=== PATIENT | female | born 1970 | race Caucasian/White ===

== ENCOUNTER 2020-01-19 01:42 | Day surgery (SDC) | payer BC, SELFPAY ==
[2020-01-16 09:54] VITALS: BMI 24.2
[2020-01-19 12:17] VITALS: BP 140/93; PULSE 113; RESP 20; TEMP 36.4; O2SAT 100
[2020-01-19] MEDS: LACTATED RINGERS 1,000 ML 150 ML IV CONT (12:31)
--- NOTE | 2020-01-19 12:56 | WPDANESEPPF ---
Anes - Initial Pre Proc Eval Procedure: Operation Date: 01/19/20 13:30 Proposed Procedures p Screening Colonoscopy - Guillermo Sahni MD Date/Time: 01/19/20 12:56 Surgeon: Guillermo Sahni MD Pre Op Diagnosis: Neoplasm Screening Patient Data Age: 49 Gender: F Height: 1.68 m Weight: 69.3 kg Last Vital Signs Temp 36.4 C 01/19/20 12:17 Pulse 113 H 01/19/20 12:17 Resp 20 01/19/20 12:17 BP 140/93 H 01/19/20 12:17 Pulse Ox 100 01/19/20 12:17 Allergies Allergy/AdvReac Type Severity Reaction Status Date / Time No Known Allergies Allergy Verified 01/19/20 12:15 Home Medications Medication Instructions Recorded Confirmed Type aspirin [Aspir-81] 81 mg PO DAILY 01/16/20 01/16/20 History epkkrdumtj-qyflswozfmcpa-xsew 1 tablet PO PRN PRN 01/16/20 01/16/20 History cholecalciferol (vitamin D3) 1,000 unit PO DAILY 01/16/20 01/16/20 History [Vitamin D3] dicyclomine 10 mg PO BID PRN 01/16/20 01/16/20 History nortriptyline 20 mg PO HS 01/16/20 01/16/20 History rosuvastatin 20 mg PO DAILY 01/16/20 01/16/20 History vitamin B complex 1 cap PO DAILY 01/16/20 01/16/20 History Patient hx anesthesia problems: none Family hx anesthesia problems: none [facility] Past Medical History Medical History (Updated 01/18/20 @ 13:29 by Dilshad Stephens DO) CVA (cerebral vascular accident) 2005 no residual Hyperlipidemia Migraine Palpitations Anes - Eval Final PreProcedure Day of Procedure 01/19/20 12:56 Patient weight: normal Heart: regular rate and rhythm Lungs: clear to auscultation and normal air movement Airway: Mallampati scale class II Neurological: alert and oriented Last oral intake: >/= 8 hours ASA classification: III Emergent: no Anesthetic plan: proceed Anesthesia type and monitoring: general GIVS and standard monitoring Informed Consent: The patient's anesthetic plan and its attendant risks and benefits were discussed with the patient/family/POA. Questions were solicited and answers provided to the satisfaction of the patient/family/POA.
[2020-01-19 13:33] VITALS: BP 118/78; PULSE 100; RESP 16; O2SAT 99
--- NOTE | 2020-01-19 13:34 | PM.HPGS ---
History of Present Illness History of Present Illness Consent: Risks, benefits, and alternatives have been discussed and questions answered. Patient agrees to proceed with procedure. Chief complaint: Neoplasm Screening Narrative: Yunior Yañez is a 49 year old female here for screening colonoscopy, never had one. Review of Systems Constitutional: Constitutional: Denies headache(s) and Denies weakness Eyes: Eyes: Denies blurry vision ENT: Reports Normal hearing present, Denies headache(s) and Denies neck pain Cardiovascular: Cardiovascular: Denies chest pain and Denies dyspnea Respiratory: Respiratory: Denies dyspnea Gastrointestinal: Gastrointestinal: Reports no additional gastrointestinal complaints Genitourinary: Genitourinary: Denies dysuria Musculoskeletal: Musculoskeletal: Denies neck pain Integumentary/Breasts: Skin/Breast: Denies dry skin Neurologic: Reports Normal hearing present, Denies headache(s) and Denies weakness Psychiatric: Psychiatric: Denies anxiety Endocrine: Endocrine: Denies change in body appearance Hematologic/Lymphatic: Hematologic/Lymphatic: Denies easy bleeding Allergic/Immunologic: Allergic/Immunologic: Denies urticaria PMFSH Past Medical History Medical History (Updated 01/19/20 @ 13:35 by Guillermo Sahni MD) Colon cancer screening CVA (cerebral vascular accident) 2005 no residual Hyperlipidemia Migraine Palpitations Meds Home Medications and Allergies Home Medications Medication Instructions Recorded Confirmed Type aspirin [Aspir-81] 81 mg PO DAILY 01/16/20 01/16/20 History wzugrjuoue-hsrtntsggbwsq-tmwk 1 tablet PO PRN PRN 01/16/20 01/16/20 History cholecalciferol (vitamin D3) 1,000 unit PO DAILY 01/16/20 01/16/20 History [Vitamin D3] dicyclomine 10 mg PO BID PRN 01/16/20 01/16/20 History nortriptyline 20 mg PO HS 01/16/20 01/16/20 History rosuvastatin 20 mg PO DAILY 01/16/20 01/16/20 History vitamin B complex 1 cap PO DAILY 01/16/20 01/16/20 History Allergies Allergy/AdvReac Type Severity Reaction Status Date / Time No Known Allergies Allergy Verified 01/19/20 12:15 Vital Signs Vital Signs - 24 hr 01/19/20 12:17 Temperature 97.6 F Pulse Rate 113 H Respiratory Rate 20 Blood Pressure 140/93 H Pulse Oximetry 100 Exam Const: General: comfortable and no acute distress HENMT: General nose exam: Normal nares present Eyes: General: appearance normal, both eyes and all related structures Neck: Neck: no JVD Resp: Auscultation: clear to auscultation bilaterally Cardio: Rate: regular rate Rhythm: regular rhythm GI: Inspection: non-distended GI Palp: Yes Soft to palpation Skin: General skin exam: normal color Neuro: General: gait normal Speech: normal speech Extrem: General: normal to inspection Psych: Mental Status: mental status grossly normal Assessment and Plan Assessment and plan (1) Colon cancer screening: Code(s): Z12.11 - Encounter for screening for malignant neoplasm of colon Status: Acute Assessment and Plan: will proceed with colonoscopy
[2020-01-19 13:43] VITALS: BP 127/86; PULSE 95; RESP 16; O2SAT 100
[2020-01-19 13:53] VITALS: BP 124/74; PULSE 94; RESP 21; O2SAT 98
== END 2020-01-19 14:15 | disposition home or self-care (01) ==
PROVIDERS: PCP Internal Medicine; Visit Provider Internal Medicine Gastroenterology
PROC: 0DJD8ZZ Inspection of Lower Intestinal Tract, Via Natural or Artificial Opening Endoscopic (ICD-10-PCS; CPT 45378; principal; 2020-01-19 13:30)
DX: Z12.11 Encounter for screening for malignant neoplasm of colon (principal); K57.30 Diverticulosis of large intestine without perforation or abscess without bleeding; K64.8 Other hemorrhoids; E78.5 Hyperlipidemia, unspecified; Z86.73 Personal history of transient ischemic attack (TIA), and cerebral infarction without residual deficits; Z79.82 Long term (current) use of aspirin
CPT/HCPCS: 45378; J2704; J7120

== ENCOUNTER 2020-08-24 15:20 | Outpatient (CLI) | payer BC, SELFPAY ==
--- NOTE | ~2020-08-24 | MM_ITS ---
EXAMINATION: MM screening shyann BI w sam HISTORY: Screening TECHNIQUE: Craniocaudal and mediolateral oblique 3-D tomosynthesis images were obtained and synthetic 2-D images were generated. CAD analysis was submitted and interpreted. COMPARISON: Comparison to multiple prior studies sequentially, with oldest reviewed study dated 07/2012. BREAST PARENCHYMAL COMPOSITION: There are scattered areas of fibroglandular density. FINDINGS: There is no evidence of suspicious mass, calcification, or architectural distortion to sugg est malignancy in either breast. There has been no suspicious interval change. IMPRESSION: 1. No mammographic evidence of malignancy. 2. Recommend routine screening mammography in one year. BI-RADS Category 1: Negative Reviewed, dictated and finalized at location A.
== END 2020-08-24 15:21 | disposition home or self-care (01) ==
PROVIDERS: PCP Internal Medicine; Visit Provider Nurse Practitioner
DX: Z12.31 Encounter for screening mammogram for malignant neoplasm of breast (principal)
CPT/HCPCS: 77063; 77067

== ENCOUNTER 2022-01-01 07:45 | Outpatient (CLI) | payer BC, SELFPAY ==
--- NOTE | ~2022-01-01 | XR_ITS ---
EXAMINATION: XR chest 2V DATE: 01/01/2022 07:59 INDICATION: Shortness of breath TECHNIQUE: PA and lateral views of the chest are obtained. COMPARISON: None available FINDINGS: The lungs are free of acute opacities. There is no pleural effusion or pneumothorax. The ca rdiomediastinal silhouette is normal. There is mild thoracic spondylosis. Surgical clips in the right upper quadrant are likely from prior cholecystectomy. IMPRESSION: 1. No acute cardiopulmonary abnormality. Reviewed, dictated and finalized at location A. L WORKER
== END 2022-01-01 07:46 | disposition home or self-care (01) ==
LOC: ANHIMG 07:48
PROVIDERS: PCP Internal Medicine; Visit Provider Nurse Practitioner
DX: R06.02 Shortness of breath (principal)
CPT/HCPCS: 71046

== ENCOUNTER 2022-01-27 09:05 | Outpatient (CLI) | payer BC, SELFPAY ==
--- NOTE | 2022-01-27 09:56 | EST_ITS ---
Patient Info Name: Yunior Washington Age: 51 years : 1970 Gender: Female Ht: 65 in Wt: 153 lbs BSA: 1.80 m2 Exam Date: 01/27/2022 10:04 AM Exam Location: [facility] Stress Patient Status: Outpatient Admit Date: 01/27/2022 Staff Ordering Physician: Kaelyn Ha Attending Provider: Kaelyn Ha Exercise Technologist: Mayo Montano RDCS, RT Exercise Physician: Edin Gardner DO Exam Type: CA stress test treadmill Study Info A treadmill exercise stress test was performed. Summary 1. 1. Negative Edin exercise stress test for ischemic ST changes by ECG criteria. 2. 2. Reduced functional capacity, achieving 8 METs of workload. 3. 3. Baseline hypertension. 4. 4. Rapid HR response to exercise in first 2.5 minutes reaching 85% MPHR for age group. 5. 5. Appropriate HR recovery at 1 minute post exercise. 6. 6. No imaging with stress testing. 7. 7. Patient informed of the above results. Protocol: Edin Stress ECG Details Stage: REST Duration (min): 3 min : 15 sec Speed (mph): 0.0 Grade (%): 0 HR (bpm): 98 SBP (mmHg): 140 DBP (mmHg): 105 METS: --- Stage: REST Duration (min): 4 min : 2 sec Speed (mph): 1.0 Grade (%): 0 HR (bpm): 103 SBP (mmHg): 140 DBP (mmHg): 105 METS: --- Stage: STAGE 1 Duration (min): 1 min : 0 sec Speed (mph): 1.7 Grade (%): 10 HR (bpm): 123 SBP (mmHg): 140 DBP (mmHg): 105 METS: --- Stage: STAGE 1 Duration (min): 2 min : 0 sec Speed (mph): 1.7 Grade (%): 10 HR (bpm): 138 SBP (mmHg): 140 DBP (mmHg): 105 METS: --- Stage: STAGE 1 Duration (min): 3 min : 0 sec Speed (mph): 1.7 Grade (%): 10 HR (bpm): 142 SBP (mmHg): 139 DBP (mmHg): 88 METS: --- Stage: STAGE 2 Duration (min): 1 min : 0 sec Speed (mph): 2.5 Grade (%): 12 HR (bpm): 151 SBP (mmHg): 139 DBP (mmHg): 88 METS: --- Stage: STAGE 2 Duration (min): 2 min : 0 sec Speed (mph): 2.5 Grade (%): 12 HR (bpm): 158 SBP (mmHg): 139 DBP (mmHg): 88 METS: --- Stage: STAGE 2 Duration (min): 3 min : 0 sec Speed (mph): 2.5 Grade (%): 12 HR (bpm): 164 SBP (mmHg): 156 DBP (mmHg): 85 METS: --- Stage: STAGE 3 Duration (min): 0 min : 46 sec Speed (mph): 3.4 Grade (%): 14 HR (bpm): 166 SBP (mmHg): 156 DBP (mmHg): 85 METS: --- Stage: RECOVERY Duration (min): 0 min : 14 sec Speed (mph): 1.5 Grade (%): 0 HR (bpm): 168 SBP (mmHg): 156 DBP (mmHg): 85 METS: --- Stage: RECOVERY Duration (min): 1 min : 14 sec Speed (mph): 0.0 Grade (%): 0 HR (bpm): 149 SBP (mmHg): 156 DBP (mmHg): 85 METS: --- Stage: RECOVERY Duration (min): 2 min : 14 sec Speed (mph): 0.0 Grade (%): 0 HR (bpm): 134 SBP (mmHg): 183 DBP (mmHg): 97 METS: --- Stage: REC
--- NOTE | 2022-01-30 15:49 | WPDHOLTEREM ---
Holter/Event Monitor Holter/Event Monitor Date of procedure: 01/27/22 Holter/Event Procedure: 48 Hr Holter Monitor Indications: Palpitations Conclusion: 1. 48 hour holter monitor on 01/27/22. 2. Underlying rhythm is sinus rhythm. HR range 59-143 bpm; average HR 90 bpm. 3. There are 110 premature supraventricular complexes. No supraventricular tachycardia. 4. There are 2 premature ventricular complexes. No ventricular tachycardia. 5. No sinoatrial or atrioventricular blocks. No significant pauses greater than 2 seconds. 6. No symptoms available for correlation.
== END 2022-01-27 09:06 | disposition home or self-care (01) ==
LOC: ANHCARD 09:07
PROVIDERS: PCP Internal Medicine; Visit Provider Nurse Practitioner
DX: R06.02 Shortness of breath (principal); R00.2 Palpitations
CPT/HCPCS: 93017; 93225; 93226